=== PATIENT | female | born 1995 | race African-American/Black ===

== ENCOUNTER 2024-01-27 21:35 | Emergency (ER) | payer OTHER ==
[~2024-01-27] VITALS: Ht 175.3 cm; Wt 99.5 kg
[2024-01-27 22:11] VITALS: TEMP 98.5; O2SAT 100
[2024-01-27] MEDS ORDERED: ACET-2708 MT (23:21)
[2024-01-27] MEDS ORDERED: NAPR375T5 MT (23:21)
[2024-01-27] MEDS ORDERED: CYCL5TAB MT (23:21)
[2024-01-27] MEDS: IBUPROFEN 600MG TABLET PO ONE (23:58)
[2024-01-27] MEDS: ACETAMINOPHEN 325MG TABLET PO ONE (23:58)
[2024-01-27 23:59] VITALS: BP 156/84; PULSE 62; RESP 16; O2SAT 100
== END 2024-01-28 00:06 | disposition home or self-care (01) ==
LOC: ER 21:35
DX: S76.111A Strain of right quadriceps muscle, fascia and tendon, initial encounter (principal); S76.112A Strain of left quadriceps muscle, fascia and tendon, initial encounter; M79.604 Pain in right leg; M79.605 Pain in left leg; Z79.1 Long term (current) use of non-steroidal anti-inflammatories (NSAID); X58.XXXA Exposure to other specified factors, initial encounter; Y93.45 Activity, cheerleading; Y92.89 Other specified places as the place of occurrence of the external cause; Y99.8 Other external cause status
CPT/HCPCS: 81025; 99283